=== PATIENT | female | born 1995 | race Hispanic/Latino ===

== ENCOUNTER 2018-08-04 13:34 | Day surgery (SDC) | payer OTHER ==
[2018-08-04 14:22] VITALS: BMI 33.6
--- NOTE | 2018-08-04 15:25 | PDOC.FPROB ---
FMR OB H&P: HPI - History of Present Illness Chief Complaint: Decreased movement History of Present Illness: 23 yo at 36.4 wks by 8 wk sono c/w LMP presents for decreased movement. States that she has had itching in her hands/feet for past week, yesterday was seen in clinic and labs were drawn for concern for cholestasis of . She was given precautions about decreased FM. This morning, she states she stopped feeling her baby move at 8 AM, laid down at ten for a kick count and did not feel him kick, so she came in FMR OB H&P: Current - Care : 3 Para: 0020 Gestational age: 36.4 Due date: 08/28/18 Dating Criteria: 8 wk sono cw LMP Course/Complications: Bacterial vaginosis and candidal vaginitis - OB Labs Blood type: O RH: negative Antibody Screen: negative HIV: negative RPR: negative HepBsAg: negative Rubella: immune Quad screen: negative Pap Smear: normal 1 hour gtt: 132 GBS: negative FMR OB H&P: History - Past Medical History PMH: None - OB History OB History: 2 early spontaneous abortions. Denies hx of D&Cs. 1st- age 19, 5 wks 2nd- age 22, 10 wk - [employer] History [employer] History: multiple candidal and BV infections - Surgical History Sx History: none - Social History Social History: Denies tobacco, alcohol, or drug use - Family History Family History: Family history of DM and HTN FMR OB H&P: Medications - Current Home Medications: Medication Instructions Recorded Confirmed Type Clotrimazole [Clotrimazole 1% 1 applic VAG DAILY 08/04/18 08/04/18 History Vaginal Cream] Metronidazole [metroNIDAZOLE] 500 mg PO Q12HR 08/04/18 08/04/18 History Vit No.129/Iron/Folic 1 tab PO DAILY 08/04/18 08/04/18 History [ One Daily Tablet] Triamcinolone Acetonide 1 applic TOP BID #1 bot 08/04/18 Rx [Triamcinolone Acetonide 0.1% Lotion] Allergies/Adverse Reactions: Allergies Allergy/AdvReac Type Severity Reaction Status Date / Time No Known Allergies Allergy Verified 08/04/18 14:04 FMR OB H&P: ROS - Review of Systems General: denies: fever/chills Eyes: denies: eye pain, vision changes ENT: denies: nasal congestion, rhinorrhea, sinus pain/pressure Cardiovascular: reports: edema. denies: chest pain, palpitation Respiratory: denies: cough, congestion, shortness of breath Gastrointestinal: reports: nausea. denies: abdominal pain, vomiting, diarrhea, constipation, bright red blood Genitourinary (Female): denies: incontinence, dysuria, hematuria, vaginal discharge, vaginal pain, vaginal bleeding, contractions Musculoskeletal: denies: pain, tenderness Neurologic: denies: numbness, seizures, weakness Integumentary: reports: itching, rash Psychological: denies: depression, anxiety FMR OB H&P: Vital Signs - Maternal Vital signs: T 98.9 P 82 R 20 BP 122/60 - Heart Tones Baseline: 140 Variability: moderate Acceleration: present Deceleration: absent [place] contractions every: occasional cxn, mom does not feel them FMR OB H&P: Physical Exam - Physical Exam General: NAD, awake, alert and oriented HEENT: normocephalic and atraumatic, PERRLA, EOMI, MMM, grossly normal hearing, oropharynx clear, good dention Neck: supple, no LAD Breast: symmetric Heart: RRR, normal S1/S2, no murmurs/rubs/gallops, pulses present, other (trace pitting edema in BLE) General: CTAB, no respiratory distress, good air movement, no wheezing, no retractions Abdomen: soft, gravid, non-tender Musculoskeletal: pulses present, FROM in all four extremities, no atrophy Neurological: cranial nerves II through XII intact, no focal deficit Skin: capillary refill <2 seconds, no jaundice, other (skin colored papular rash on fingers; erythematous papular rash on soles of feet and in between toes. No tracking seen.) Lymphatic: no unusual bruising or bleeding, no purpura Psychiatric: intact recent and remote memory, good judgement and insight FMR OB H&P: Results - Labs Lab results: CMP, RPR faxed from [facility]. WNL, RPR negative. - Imaging Imaging: [facility] [place] 12/13 FMR OB H&P: A/P - Problem List (1) Decreased movement Current Visit: Yes Status: Acute Code(s): O36.8190 - DECREASED MOVEMENTS, UNSP TRIMESTER, UNSP (2) Atopic dermatitis Current Visit: Yes Status: Acute Code(s): L20.9 - ATOPIC DERMATITIS, UNSPECIFIED Discussion: Date/Time: 08/04/18 1525 sIUP, concern for decreased FM and cholestasis of - BPP 12/13, NST reactive - Mother reports feeling baby move now - unlikely cholestasis as CMP wnl, RPR negative. Bile acids are pending. Rash appears more like an atopic dermatitis - Patient has close follow up, appointment on Monday with PCP at [facility], appointment Monday for growth scan - Discussed kick counts Atopic Dermatitis -Erythematous, papular rash of palms and soles. No track vasquez seen, unlikely to be scabies. No contacts have similar rash. -RPR negative -Prescribed topical triamcinolone cream This H&P was discussed with Dr. Arteaga who agree with the above documentation and plan. Addendum - Attending - Attending Attestation Date/Time: 08/04/18 4495 I personally evaluated the patient and discussed the management with Dr. Radhika Butts I agree with the History, Examination, Assessment and Plan documented above with any addition or exceptions noted below- 23 yo @36.4 weeks whoi presented c/o decreased FM since this morning. Denies any ctx, LOF, VB. (+) FM. Also c/o pruritic rash to palms and soles of hands and feet. Was seen at office yesterday for the rash and labs ordered (CMP, bile acids, and RPR). PMH/PSH/ Meds reviewed and agree with resident's documentation. Afebrile VSS. Exam repeated by me and agree with resident's findings. Normal CMP and negative RPR faxed from [facility]. Bile acids pending. Category 1 FHTs; BPP 02/14. A/P: 1) Decreased FM with normal tetsing. Patient reassured and now is feeling baby move. 2) Rash- possibly atopic dermatitis- will send in rx for steroid cream.
--- NOTE | 2018-08-04 16:11 | ULT ---
BIOPHYSICAL PROFILE: 08/04/18 HISTORY: Decreased movements. Real time imaging of the pelvis showed a single viable intrauterine in cephalic presentatio n. Cervical canal length is 3.2 cm. heart rate is 121 beats per minute. Amniotic fluid index is 12.1. biophysical profile score is as follows: tone - 2 breathing - 2 movements - 2 Amniotic fluid - 2 IMPRESSION: biophysical profile score of an 8 of a possible 8. POS: [place]
== END 2018-08-04 16:48 | disposition home health service (06) ==
LOC: L&D/OP 13:34
PROVIDERS: ATTEND Family Medicine
DX: O36.8130 Decreased fetal movements, third trimester, not applicable or unspecified (principal); O99.713 Diseases of the skin and subcutaneous tissue complicating pregnancy, third trimester; L20.9 Atopic dermatitis, unspecified; Z3A.36 36 weeks gestation of pregnancy; Z87.59 Personal history of other complications of pregnancy, childbirth and the puerperium; Z79.899 Other long term (current) drug therapy
CPT/HCPCS: 76819; 99282

== ENCOUNTER 2018-08-23 17:23 | Inpatient (IN) | payer OTHER ==
--- NOTE | 2018-08-23 20:20 | PDOC.FPROB ---
FMR OB H&P: HPI - History of Present Illness Chief Complaint: cytotec IOL for LGA Indentification: History of Present Illness: 23 yo at 39.2 by LMP/8.0 wk sono here for cytotec IOL. Patient denies VB , CTX, LOF. Endorses FM. Antepartum course complicated by LGA baby with qweekly US for monitoring. Pt passed 1 hr GTT. Hadlock of 99% on US last month. Primary Care Physician: Dr. Cabrera FMR OB H&P: Current - Care : 3 Para: 0020 Gestational age: 39.2 Due date: 08/28/18 Dating Criteria: LMP c/w 1T sono - OB Labs Blood type: O RH: negative Antibody Screen: negative HIV: negative RPR: negative HepBsAg: negative Rubella: immune Quad screen: negative Gonorrhea: negative Chlamydia: negative Pap Smear: NILM 1 hour gtt: 132 A1c: 5.3 GBS: negative - Additional Ultrasound Additional: Growth US (07/26/18) Hadlock 99%, EFW 3736g FMR OB H&P: History - Past Medical History PMH: Denies - Surgical History Sx History: Denies - Social History Social History: Denies t/e/d - Family History Family History: Denies FMR OB H&P: Medications - Current Home Medications: Medication Instructions Recorded Confirmed Type Vit No.129/Iron/Folic 1 tab PO DAILY 08/04/18 08/23/18 History [ One Daily Tablet] Allergies/Adverse Reactions: Allergies Allergy/AdvReac Type Severity Reaction Status Date / Time No Known Allergies Allergy Verified 08/23/18 21:52 FMR OB H&P: ROS - Review of Systems General: denies: fever/chills, weight/appetite/sleep changes, recent trauma Eyes: denies: vision changes Respiratory: denies: cough, congestion, shortness of breath Gastrointestinal: denies: abdominal pain Genitourinary (Female): denies: dysuria, vaginal discharge, vaginal pain, vaginal bleeding, contractions, vaginal pressure Musculoskeletal: denies: pain, stiffness Neurologic: denies: syncope, seizures, weakness FMR OB H&P: Physical Exam - Physical Exam General: NAD, awake, alert and oriented HEENT: normocephalic and atraumatic, EOMI, MMM, conjunctiva clear, no scleral icterus Neck: supple, FROM Heart: RRR, normal S1/S2 General: CTAB, no respiratory distress, good air movement Abdomen: gravid, fundus(cm), non-tender Neurological: no focal deficit Skin: good tugor, capillary refill <2 seconds Lymphatic: no unusual bruising or bleeding Psychiatric: intact recent and remote memory, good judgement and insight, normal mood and affect FMR OB H&P: A/P - Problem List (1) Term Status: Acute Code(s): Z34.80 - ENCOUNTER FOR SUPRVSN OF NORMAL , UNSP TRIMESTER (2) LGA (large for gestational age) fetus Status: Acute Code(s): [id number] - Disposition: 23 yo at 39.2 by LMP/8.0wk sono here for cytotec IOL #sIUP -SVE: 2/50/-3 , [place] 5, will place cytotec, recheck in 3 hours -FHT: Cat I -Patient does not desire epidural -Presentation vertex -proceed with induction of labor #LGA -Hadlock 99% on 07/2018 growth ultrasound -Anatomy US 05/15/2018 WNL #Excessive maternal wt. gain -Discuss lifestyle modification Discussed with Dr. Severino Discussion: Date/Time: 08/23/182018 This H&P was discussed with [] and [] who agree with the above documentation and plan. Addendum - Attending - Attending Attestation Date/Time: 08/24/18904 I discussed the management with Dr. Reich at [facility] of admission. I agree with the History, Examination, Assessment and Plan documented above with any addition or exceptions noted below.
[2018-08-23 22:03] VITALS: BMI 34.4
[2018-08-23] MEDS ORDERED: Ondansetron PF 4 MG/2 ML Vial IVP PRN (22:42)
[2018-08-23] MEDS ORDERED: Promethazine HCl 25 MG/ML VIAL IM PRN (22:42)
[2018-08-23] MEDS ORDERED: NS / Oxytocin 40 units/1000ml 1,000 ML IV PRN (22:42)
[2018-08-23] MEDS ORDERED: Lidocaine 1% (PF) 30 ML VIAL SC PRN (22:42)
[2018-08-23] MEDS: Lactated Ringer's 1,000 ML IV SCH (23:09)
[2018-08-23 23:12] LABS: Hemoglobin 10.7 g/dL (12.0-16.0); Mean Corpuscular HGB CONC 33.1 g/dL (32.0-36.0); Mean Corpuscular Volume 78.7 fL (78.0-98.0); Mean Platelet Volume 9.5 fL (7.4-10.4); Platelet Count 192 thou/uL (130-400); RBC Distribution Width 15.2 % (11.5-14.5); Red Blood Cell (RBC) Count 4.11 mill/uL (4.20-5.40); White Blood Cell (WBC) Count 13.2 thou/uL (4.8-10.8)
[2018-08-23] MEDS: Misoprostol 100 MCG TAB VAG SCH (23:15)
[2018-08-23 23:49] LABS: HBSAg Index 0.39 S/CO (0-0.99); Hep B Surf Ag Non-Reactive S/CO (NonReactive); Syphilis Antibody Nonreactive (Nonreactive); Syphilis Antibody Index 0.03 S/CO (<1.00 Non-Reactive)
[2018-08-24] MEDS: Misoprostol 100 MCG TAB VAG SCH ×4 (02:27→12:48)
--- NOTE | 2018-08-24 04:25 | PDOC.LDPN ---
Labor & Delivery Progress Note - Subjective Subjective: comfortable, vaginal pressure - Objective Vital signs reviewed and normal: yes General: NAD Uterine fundus: non tender (150/mod/accels) Dilation: 3 Effacement: 50% Station: -3 FHT: category 1 [place] contractions every: uterine irritability - Assessment (1) Term Code(s): Z34.80 - ENCOUNTER FOR SUPRVSN OF NORMAL , UNSP TRIMESTER Current Visit: No Status: Acute (2) LGA (large for gestational age) fetus Code(s): [id number] - Current Visit: No Status: Acute Plan: labor augmentation -: 23 yo at 39.2 by LMP/8.0wk sono here for cytotec IOL #sIUP -SVE: 50/-3 , placed second cytotec, recheck in 3 hrs -FHT: Cat I -Patient does not desire epidural #LGA -Hadlock 99% on 07/2018 growth ultrasound -Anatomy US 05/15/2018 WNL #Excessive maternal wt. gain -Discuss lifestyle modification Discussed with Dr. Severino
[2018-08-24] MEDS: Lactated Ringer's 1,000 ML IV SCH (04:40)
--- NOTE | 2018-08-24 06:18 | PDOC.LDPN ---
Labor & Delivery Progress Note - Subjective Subjective: comfortable, vaginal pressure, no concerns - Objective Vital signs reviewed and normal: yes General: resting Uterine fundus: non tender Dilation: 7 Effacement: 90% Station: -3 FHT: category 1 [place] contractions every: 120/mod/accels - Assessment (1) Term Code(s): Z34.80 - ENCOUNTER FOR SUPRVSN OF NORMAL , UNSP TRIMESTER Status: Acute (2) LGA (large for gestational age) fetus Code(s): [id number] - Status: Acute Plan: continue plan of care, labor augmentation -: 23 yo at 39.2 by LMP/8.0wk sono here for cytotec IOL #sIUP, term -SVE: /-3 , baby still high -FHT: Cat I, CTX 2-5min -Patient does not desire epidural at this time #Polyhydramnios -Hadlock 99% on 07/2018 growth ultrasound -Anatomy US 05/15/2018 WNL -BPP8/8 with EBONI 29 #Excessive maternal weight gain -Discuss lifestyle modification Addendum - Attending - Attending Attestation Date/Time: 08/26/18 8221 I personally evaluated the patient and discussed the management with team. I agree with the History, Examination, Assessment and Plan documented above with any addition or exceptions noted below.
[2018-08-24] MEDS ORDERED: Lidocaine 1% (PF) 30 ML VIAL ONE (07:10)
[2018-08-24] MEDS ORDERED: NS / Oxytocin 40 units/1000ml 1,000 ML ONE ×2 (07:10→11:09)
--- NOTE | 2018-08-24 08:37 | PDOC.LDPN ---
Labor & Delivery Progress Note - Subjective Subjective: painful contractions - Objective Vital signs reviewed and normal: yes General: breathing through contractions Uterine fundus: non tender Dilation: 9 Effacement: 100% Station: -2 FHT: category 1 (140/mod/+ accels/no decels) [place] contractions every: 2-3min - Assessment (1) LGA (large for gestational age) fetus Code(s): [id number] - Status: Acute (2) Term Code(s): Z34.80 - ENCOUNTER FOR SUPRVSN OF NORMAL , UNSP TRIMESTER Status: Acute Plan: continue plan of care -: 23 yo at 39.2 by LMP/8.0wk sono here for cytotec IOL sIUP, term - SVE: 100/-2 - FHT: 140 Cat I - Breathing through contractions, managing pain well. LGA - Hadlock 99% on 07/2018 growth ultrasound - Anatomy US 05/15/2018 WNL - BPP 12/13 with EBONI 29 Excessive maternal weight gain - 23kg - Discuss lifestyle modification Addendum - Attending - Attending Attestation Date/Time: 08/24/18 1246 I personally evaluated the patient and discussed the management with Dr. Cabrera and team. I agree with the History, Examination, Assessment and Plan documented above with any addition or exceptions noted below.
--- NOTE | 2018-08-24 10:46 | PDOC.LDPN ---
Labor & Delivery Progress Note - Subjective Subjective: painful contractions - Objective Vital signs reviewed and normal: yes General: breathing through contractions Dilation: 9.5 Effacement: 100% Station: -2 FHT: category 1 [place] contractions every: 2-4min AROM: clear fluid - Assessment (1) LGA (large for gestational age) fetus Code(s): [id number] - Status: Acute (2) Term Code(s): Z34.80 - ENCOUNTER FOR SUPRVSN OF NORMAL , UNSP TRIMESTER Status: Acute Plan: continue plan of care -: 23 yo at 39.2 by LMP/8.0wk sono here for cytotec IOL sIUP, term - SVE: 9.5/100/-2 - aROM with clear fluid - FHT: 140 Cat I - Breathing through contractions, managing pain well. LGA - Hadlock 99% on 07/2018 growth ultrasound - Anatomy US 05/15/2018 WNL - BPP 12/13 with EBONI 29 Excessive maternal weight gain - 23kg - Discuss lifestyle modification Addendum - Attending - Attending Attestation Date/Time: 08/24/18 7923 I personally evaluated the patient and discussed the management with Dr. Cabrera and team. I agree with the History, Examination, Assessment and Plan documented above with any addition or exceptions noted below.
[2018-08-24] MEDS ORDERED: Misoprostol 200 MCG TAB ONE (11:09)
[2018-08-24] MEDS ORDERED: Carboprost 250 MCG/ML AMP ONE (11:09)
[2018-08-24] MEDS ORDERED: Methylergonovine 0.2 MG/ML VIAL ONE (11:09)
[2018-08-24] MEDS ORDERED: Milk Of Magnesia 30 ML UDCUP PO PRN (13:11)
[2018-08-24] MEDS ORDERED: Bisacodyl 10 MG SUPP PR PRN (13:11)
[2018-08-24] MEDS ORDERED: Adacel (T-DAP) 0.5 ML SYRINGE IM ONE (13:11)
[2018-08-24] MEDS ORDERED: NS / Oxytocin 40 units/1000ml 1,000 ML IV SCH (13:11)
[2018-08-24] MEDS: Ibuprofen 800 MG TAB PO SCH ×2 (14:41→22:24)
[2018-08-24] MEDS ORDERED: Benzocaine-Menthol 82.5 ML CAN TOP PRN (17:38)
--- NOTE | 2018-08-24 17:42 | DN ---
DATE OF PROCEDURE: 08/24/2018 RESIDENT PHYSICIAN: Matt Cabrera MD ASSISTING PHYSICIAN: Migdalia Parham MD ATTENDING PHYSICIAN: Thomas Nicholson MD PROCEDURE: Normal spontaneous vaginal delivery with second-degree perineal laceration repair. PREPROCEDURE DIAGNOSES: 1. Term intrauterine . 2. Elective induction of labor. 3. Concern for LGA with most recent estimated weight of 4400 g. 4. Blood type O-negative. POSTPROCEDURE DIAGNOSES: 1. Term intrauterine . 2. Elective induction of labor. 3. Concern for LGA with most recent estimated weight of 4400 g. 4. Blood type O-negative. ANESTHESIA: Lidocaine 1% without epinephrine, 20 mL. QUANTITATIVE BLOOD LOSS: 248 mL. INDICATIONS: Ms. Toscano is a 23-year-old, 3, para 0-0-2-0 at 39.1 weeks, who presented for elective induction of labor. Her course was complicated by excessive weight gain of 60 pounds and concerned for macrosomia with most recent ultrasound giving estimated weight of approximately 4400 g placed the chart in the 99th percentile. Remainder of her course was unremarkable. Risks, benefits, and alternatives were discussed with the patient and she agreed to proceed with elective induction of labor for concern with large for gestational age infant. DESCRIPTION OF PROCEDURE: After uneventful antepartum course with mild distress with persistent bradycardia seen in the low 100s to high 90s immediately prior to delivery, a vigorous male infant was delivered over intact perineum in the occiput anterior position at 11:04 a.m. The anterior shoulder and remainder of the body were delivered with gently traction. Due to distress prior to delivery, the cord was immediately cut and clamped, and he was taken to the awaiting resuscitative team. Terminal meconium was noted at this time. Cord gas segment was taken and blood gas analysis is pending at this time. Cord blood was then obtained for routine studies. Placenta was then delivered at 11:07 a.m. without complication. The patient initially had mild uterine atony, which quickly resolved with IV Pitocin at which time, the uterus was found to be firm. The cervix was inspected and found to be free of lacerations. The vagina was inspected and found to have two small second-degree perineal lacerations. These were repaired with a 3-0 chromic suture in the running locking fashion. The patient had approximately 20 mL of 1% lidocaine without epinephrine administered prior to repair of the suture. A small hematoma was noted on the perineum, but did not appear to have any gross changes. Sponge and needle counts were correct x2. The patient will be transferred to the after routine recovery and care. Infant to go to the nursery after initial 1-hour uninterrupted [id number] time. Dr. Nicholson was present for the entire delivery. Job ID: [id number] [facility]
[2018-08-24] MEDS: Ferrous Sulfate 325 MG TAB PO SCH (19:00)
[2018-08-24] MEDS: Docusate Calcium (SURFAK) 240 MG CAP PO SCH (22:24)
[2018-08-25 06:08] LABS: Mean Corpuscular HGB CONC 33.5 g/dL (32.0-36.0); Mean Corpuscular Hemoglobin 26.4 pg (27.0-31.0); Mean Corpuscular Volume 78.8 fL (78.0-98.0); Mean Platelet Volume 8.9 fL (7.4-10.4); Platelet Count 157 thou/uL (130-400); RBC Distribution Width 15.1 % (11.5-14.5); Red Blood Cell (RBC) Count 3.39 mill/uL (4.20-5.40); White Blood Cell (WBC) Count 14.7 thou/uL (4.8-10.8)
--- NOTE | 2018-08-25 08:33 | PDOC.OBPPN ---
FMR OB PN: Subj - Interval History Hospital Day: 2 Day: 2 Chief Complaint: burning with urination Interval History: No events since delivery. Pain controlled. breast feeding well. FMR OB PN: Obj - Maternal Vital signs: BP: [] HR: [] RR: [] Tmax: [] Pox: []% on [] Wt: [] - Urine output I&O: 08/24/18 08/25/18 08/26/18 06:59 06:59 06:59 Intake Total 1 Balance 1 - Lochia Lochia: appropriate. - Pain Management Intervention: alternate pain modalities FMR OB PN: Exam - Physical Exam General: NAD, awake, alert and oriented HEENT: normocephalic and atraumatic, no scleral icterus Heart: RRR, normal S1/S2 General: CTAB, no respiratory distress Abdomen: soft, gravid, fundus(cm) (firm below umbilicus) Skin: no rash, good tugor : no drainage, appropriately tender - Pelvic Exam : perineal incision/laceration healing well, sutures intact, non- tender, no discharge, no edema, normal lochia FMR OB PN: Data - Labs Lab results: Laboratory Results - last 24 hr 08/24/18 08/25/18 13:48 05:53 WBC 14.7 H RBC 3.39 L Hgb 9.0 L Hct 26.7 L MCV 78.8 MCH 26.4 L MCHC 33.5 RDW 15.1 H Plt Count 157 MPV 8.9 Screen NEGATIVE FMR OB PN: A/P - Problem List (1) Term Current Visit: No Status: Acute Code(s): Z34.80 - ENCOUNTER FOR SUPRVSN OF NORMAL , UNSP TRIMESTER Assessment and Plan: PP day 2. - pain controlled. - EBL based on hematorcrit change is 1066mL. Will start iron supplementation. - Bowel regimen provided. - continue PNV - Expectant management at this time. Dispo: d/c tomorrow. (2) Rh negative state in antepartum period Current Visit: Yes Status: Acute Code(s): O26.899 - OTH RELATED CONDITIONS, UNSPECIFIED TRIMESTER; Z67.91 - UNSPECIFIED BLOOD TYPE, RH NEGATIVE Assessment and Plan: Rhogam given 08/24 (3) Anemia Current Visit: Yes Status: Acute Code(s): D64.9 - ANEMIA, UNSPECIFIED Qualifiers: Anemia type: other cause Other causes of anemia: acute posthemorrhagic Qualified Code(s): D62 - Acute posthemorrhagic anemia Assessment and Plan: iron supplementation. patient asymptomatic. Discussion: Date/Time: 08/25/18 8040 This H&P was discussed with [] and [] who agree with the above documentation and plan. Addendum - Attending - Attending Attestation Date/Time: 08/25/18 9712 I personally evaluated the patient and discussed the management with Dr. Cabrera and team. I agree with and repeated the History, Examination, Assessment and Plan documented above with any addition or exceptions noted below.
[2018-08-25] MEDS: Ibuprofen 800 MG TAB PO SCH ×3 (09:41→21:39)
[2018-08-25] MEDS: Ferrous Sulfate 325 MG TAB PO SCH ×2 (09:41→18:00)
[2018-08-25] MEDS: Docusate Calcium (SURFAK) 240 MG CAP PO SCH ×2 (09:42→21:40)
[2018-08-26] MEDS: Ibuprofen 800 MG TAB PO SCH (06:10)
--- NOTE | 2018-08-26 08:06 | PDOC.OBPPN ---
FMR OB PN: Subj - Interval History Hospital Day: 3 Day: 3 Chief Complaint: pain with urination Interval History: Pain improving. No orthostatic sx. FMR OB PN: Obj - Maternal Vital signs: BP: [] HR: [] RR: [] Tmax: [] Pox: []% on [] Wt: [] - Urine output I&O: 08/25/18 08/26/18 08/27/18 06:59 06:59 06:59 Intake Total 1 Balance 1 - Lochia Lochia: < menstrual period FMR OB PN: Exam - Physical Exam General: NAD, awake, alert and oriented HEENT: MMM, conjunctiva clear Heart: RRR, normal S1/S2 General: CTAB, no respiratory distress Abdomen: soft, gravid, fundus(cm) (below umbilicus) - Pelvic Exam : perineal incision/laceration healing well, normal lochia FMR OB PN: A/P - Problem List (1) Term Current Visit: No Status: Acute Code(s): Z34.80 - ENCOUNTER FOR SUPRVSN OF NORMAL , UNSP TRIMESTER Assessment and Plan: PP day 3. Progressing well. Will discuss control outpatient. d/c today. (2) Rh negative state in antepartum period Current Visit: Yes Status: Acute Code(s): O26.899 - OTH RELATED CONDITIONS, UNSPECIFIED TRIMESTER; Z67.91 - UNSPECIFIED BLOOD TYPE, RH NEGATIVE Assessment and Plan: s/p rhogam. (3) Anemia Current Visit: Yes Status: Acute Code(s): D64.9 - ANEMIA, UNSPECIFIED Qualifiers: Anemia type: other cause Other causes of anemia: acute posthemorrhagic Qualified Code(s): D62 - Acute posthemorrhagic anemia Assessment and Plan: continue iron. recheck H&H 6 wk PP. Discussion: Date/Time: 08/26/18804 Addendum - Attending - Attending Attestation Date/Time: 08/26/18922 I personally evaluated the patient and discussed the management with Dr. Cabrera. I agree with the History, Examination, Assessment and Plan documented above with any addition or exceptions noted below.
[2018-08-26 08:50] VITALS: BP 120/68; TEMP 98.2
[2018-08-26] MEDS: Ferrous Sulfate 325 MG TAB PO SCH (09:09)
[2018-08-26] MEDS: Docusate Calcium (SURFAK) 240 MG CAP PO SCH (09:09)
== END 2018-08-26 10:05 | disposition home or self-care (01) | DRG 806 ==
LOC: L&D 21:18 → 3SW 08-24 13:36 → EDSTATUS 08-28 17:21
PROVIDERS: ADMIT Family Medicine; ATTEND Family Medicine
PROC: 10E0XZZ Delivery of Products of Conception, External Approach (ICD-10-PCS; principal; 2018-08-24)
PROC: 0KQM0ZZ Repair Perineum Muscle, Open Approach (ICD-10-PCS; 2018-08-24)
PROC: 10907ZC Drainage of Amniotic Fluid, Therapeutic from Products of Conception, Via Natural or Artificial Opening (ICD-10-PCS; 2018-08-24)
PROC: 3E0P7VZ Introduction of Hormone into Female Reproductive, Via Natural or Artificial Opening (ICD-10-PCS; 2018-08-24)
PROC: 3E0234Z Introduction of Serum, Toxoid and Vaccine into Muscle, Percutaneous Approach (ICD-10-PCS; 2018-08-24)
DX: O36.63X0 Maternal care for excessive fetal growth, third trimester, not applicable or unspecified (principal); O71.7 Obstetric hematoma of pelvis; Z37.0 Single live birth; D62 Acute posthemorrhagic anemia; Z3A.39 39 weeks gestation of pregnancy; O40.3XX0 Polyhydramnios, third trimester, not applicable or unspecified; O26.03 Excessive weight gain in pregnancy, third trimester; O26.893 Other specified pregnancy related conditions, third trimester; Z67.91 Unspecified blood type, Rh negative; O70.1 Second degree perineal laceration during delivery; O76 Abnormality in fetal heart rate and rhythm complicating labor and delivery; O77.0 Labor and delivery complicated by meconium in amniotic fluid; O99.02 Anemia complicating childbirth
CPT/HCPCS: 36415; 85027; 85461; 86780; 86850; 86900; 86901; 87340; 90384; 90715; 96372; J2001; J2210; J3490

== ENCOUNTER 2021-11-15 21:47 | Emergency (ER) | payer OTHER, SELFPAY | END 2021-11-15 22:06 | disposition left against medical advice (07) | LOC: ERS 21:47 | DX: Z53.21 Procedure and treatment not carried out due to patient leaving prior to being seen by health care provider (principal) ==

== ENCOUNTER 2022-11-08 23:56 | Observation (INO) | payer BC, SELFPAY ==
[2022-11-09 00:39] LABS: #Basophils 0.1 thou/uL (0.0-0.2); #Eosinphils 0.1 thou/uL (0.0-0.7); #Monocytes 0.9 thou/uL (0.11-0.59); %Basophils 0.4 % (0.0-1.0); %Eosinophils 1.1 % (0.0-10.0); %Lymphocytes 26.8 % (21.0-51.0); %Monocytes 6.8 % (0.0-10.0); %Neutrophils 64.6 % (42.0-75.0); Hemoglobin 12.8 g/dL (12.0-16.0); Mean Corpuscular HGB CONC 33.4 g/dL (32.0-36.0); Mean Corpuscular Hemoglobin 29.3 pg (27.0-31.0); Mean Corpuscular Volume 87.6 fl (78.0-98.0); Mean Platelet Volume 10.1 fL (7.4-10.4); Platelet Count 271 10x3/uL (130-400); RBC Distribution Width 12.8 % (11.5-14.5); Red Blood Cell (RBC) Count 4.37 mill/uL (4.20-5.40); White Blood Cell (WBC) Count 12.5 10x3/uL (4.8-10.8)
[2022-11-09 00:46] LABS: Bacteria/HPF None Seen HPF (None Seen); Bilirubin Negative (Negative); Blood, Urine Trace (Negative); CAUTI Indications for Culture Dysuria,urgency,freq; Clarity Turbid (Clear); Glucose, Urine (Dipstick) Normal (Negative); Ketone, Urine Negative (Negative); Leukocyte Negative Leu/uL (Negative); Nitrite Negative (Negative); Protein, Urine (Dipstick) Negative (Neg-Trace); RBC/HPF 0-3 HPF (0-3); Specific Gravity, Urine 1.018 (1.002-1.036); Squamous Epithelial 0-3 HPF (0-3); Urine Culture Reflex No No; Urobilinogen Normal mg/dL (Less than 2); WBC/HPF 0-3 HPF (0-3)
[2022-11-09] MEDS ORDERED: Morphine 4 MG/ML VIAL ONE (00:58)
[2022-11-09] MEDS ORDERED: Pantoprazole 40 MG VIAL ONE (00:59)
[2022-11-09] MEDS ORDERED: Ondansetron PF 4 MG/2 ML Vial ONE ×2 (00:59→13:58)
[2022-11-09 01:03] LABS: ALT (SGPT) 17 U/L (8-55); AST (SGOT) 21 U/L (5-34); Albumin 4.6 g/dL (3.5-5.0); Alkaline Phosphatase 68 U/L (40-110); Anion Gap 14 mmol/L (10-20); BUN (Urea Nitrogen) 10 mg/dL (7.0-18.7); Bilirubin, Total 0.2 mg/dL (0.2-1.2); Calc. Creatinine Clearance 0 mL/min (70-130); Calcium 9.5 mg/dL (7.8-10.44); Carbon Dioxide 27 mmol/L (22-29); Chloride 103 mmol/L (98-107); Estimated GFR 120; Globulin 3.3 g/dL (2.4-3.5); Glucose 102 mg/dL (70-105); Potassium 3.8 mmol/L (3.5-5.1); Protein, Total 7.9 g/dL (6.0-8.3); Sodium 140 mmol/L (136-145)
[2022-11-09] MEDS ORDERED: hydrALAZINE 20 MG/ML VIAL SLOW IVP PRN (02:28)
[2022-11-09] MEDS ORDERED: Morphine 2 MG/ML VIAL SLOW IVP PRN (02:28)
[2022-11-09] MEDS ORDERED: Ipratropium/Albuterol 3 ML NEB NEB PRN (02:28)
[2022-11-09] MEDS ORDERED: Piperacillin/Tazobactam 3.375 GM VIAL ONE (02:29)
[2022-11-09 03:07] LABS: INR-International Normal Ratio 0.9; PTT 28.8 sec (22.9-36.1); Prothrombin Time 12.8 sec (12.0-14.7)
[2022-11-09] MEDS: Acetaminophen 325 MG TAB PO SCH ×3 (03:49→13:40)
[2022-11-09] MEDS: traMADol HCl 50 MG TAB PO PRN ×2 (03:50→20:41)
[2022-11-09] MEDS: Ondansetron PF 4 MG/2 ML Vial IVP PRN ×2 (03:53→20:41)
[2022-11-09] MEDS: Sodium Chloride 0.9% 1,000 ML IV SCH ×2 (03:58→11:56)
[2022-11-09 05:50] VITALS: BMI 31.2
[2022-11-09 06:29] LABS: Lipase 29 U/L (8-78); Magnesium 1.9 mg/dL (1.6-2.6); Phosphorus 3.2 mg/dL (2.3-4.7)
[2022-11-09] MEDS: traMADol HCl 50 MG TAB PO SCH ×4 (06:46→23:20)
[2022-11-09] MEDS ORDERED: Ketorolac Tromethamine 30 MG/ML VIAL IVP SCH ×2 (08:00→15:00)
[2022-11-09] MEDS ORDERED: Scopolamine 1.5 mg/72 hour Patch TD SCH (09:00)
[2022-11-09] MEDS ORDERED: Famotidine/PF 20 mg/2ml Vial SLOW IVP SCH (09:00)
[2022-11-09] MEDS ORDERED: Bupivacaine HCl 0.5%/Epinephrine 1:200,000/PF 30 ml Vial ONE (13:32)
[2022-11-09] MEDS ORDERED: SUGAMMADEX SODIUM 200 MG/2 ML VIAL ONE (13:35)
[2022-11-09] MEDS ORDERED: fentaNYL 50 mcg/mL 1 mL Vial ONE (13:35)
[2022-11-09] MEDS ORDERED: Lidocaine 1% PF 5 ML VIAL ONE (13:58)
[2022-11-09] MEDS ORDERED: Rocuronium Bromide 10 MG/ML (10ML VIAL) ONE (13:58)
[2022-11-09] MEDS ORDERED: PROPOFOL 200 MG/20 ML VIAL ONE (13:58)
[2022-11-09] MEDS ORDERED: Dexamethasone 20 MG/5 ML VIAL ONE (13:58)
[2022-11-09] MEDS ORDERED: Ketorolac Tromethamine 30 MG/ML VIAL ONE (14:58)
[2022-11-09] MEDS ORDERED: Fentanyl 250 MCG/5 ML VIAL ONE (15:02)
[2022-11-09] MEDS ORDERED: Acetaminophen 500 MG TAB PO SCH (15:30)
[2022-11-09] MEDS ORDERED: Ondansetron HCl/PF 4 MG/2 ML Vial IVP PRN (15:30)
[2022-11-09] MEDS ORDERED: Ketorolac Tromethamine 30 MG/ML VIAL IM/IV PRN (15:30)
[2022-11-09] MEDS ORDERED: Promethazine HCl 25 MG/ML VIAL IM/IV PRN (15:30)
[2022-11-09] MEDS ORDERED: Ibuprofen 600 MG TAB PO PRN (15:30)
[2022-11-09] MEDS ORDERED: traMADol HCl 50 MG TAB PO PRN (15:30)
[2022-11-09] MEDS ORDERED: Acetaminophen 500 MG TAB PO PRN (21:00)
[2022-11-10] MEDS: traMADol HCl 50 MG TAB PO SCH (05:43)
[2022-11-10 06:14] LABS: #Monocytes 0.8 thou/uL (0.11-0.59); #Neutrophils 10.5 thou/uL (1.40-6.50); %Basophils 0.2 % (0.0-1.0); %Eosinophils 0.2 % (0.0-10.0); %Lymphocytes 13.5 % (21.0-51.0); %Monocytes 6.3 % (0.0-10.0); %Neutrophils 79.3 % (42.0-75.0); Hemoglobin 11.8 g/dL (12.0-16.0); Mean Corpuscular HGB CONC 33.3 g/dL (32.0-36.0); Mean Corpuscular Hemoglobin 29.8 pg (27.0-31.0); Mean Corpuscular Volume 89.4 fl (78.0-98.0); Mean Platelet Volume 10.5 fL (7.4-10.4); Platelet Count 243 10x3/uL (130-400); RBC Distribution Width 12.7 % (11.5-14.5); Red Blood Cell (RBC) Count 3.96 mill/uL (4.20-5.40); White Blood Cell (WBC) Count 13.2 10x3/uL (4.8-10.8)
[2022-11-10 06:40] LABS: ALT (SGPT) 80 U/L (8-55); AST (SGOT) 75 U/L (5-34); Albumin 3.9 g/dL (3.5-5.0); Alkaline Phosphatase 54 U/L (40-110); Anion Gap 12 mmol/L (10-20); BUN (Urea Nitrogen) 6 mg/dL (7.0-18.7); Bilirubin, Total 0.5 mg/dL (0.2-1.2); Calc. Creatinine Clearance 152 mL/min (70-130); Calcium 9.3 mg/dL (7.8-10.44); Carbon Dioxide 24 mmol/L (22-29); Chloride 103 mmol/L (98-107); Estimated GFR 116; Globulin 2.9 g/dL (2.4-3.5); Glucose 100 mg/dL (70-105); Potassium 4.1 mmol/L (3.5-5.1); Protein, Total 6.8 g/dL (6.0-8.3); Sodium 135 mmol/L (136-145)
[2022-11-10 09:07] VITALS: BP 99/60; TEMP 97.7
== END 2022-11-10 10:59 | disposition home or self-care (01) ==
LOC: ERS 23:56 → SJJU 11-09 02:28 → INTOOBSV 11-09 02:28
PROVIDERS: ADMIT Surgery; ATTEND Surgery
PROC: 0FT44ZZ Resection of Gallbladder, Percutaneous Endoscopic Approach (ICD-10-PCS; principal; 2022-11-10)
DX: K80.12 Calculus of gallbladder with acute and chronic cholecystitis without obstruction (principal); K82.1 Hydrops of gallbladder; E66.9 Obesity, unspecified; K42.9 Umbilical hernia without obstruction or gangrene; K21.9 Gastro-esophageal reflux disease without esophagitis; K58.9 Irritable bowel syndrome, unspecified; Z68.31 Body mass index [BMI] 31.0-31.9, adult
CPT/HCPCS: 36415; 76705; 80053; 81001; 83690; 83735; 84100; 84443; 85025; 85610; 85730; 86850; 86900; 86901; 88304; 93005; 96361; 96365; 96375; C1889; C9113; J1100; J1885; J1956; J2270; J2405; J2543; J2704; J3010; J7050; S0028